=== PATIENT | male | born 2000 | race Caucasian/White ===

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

== ENCOUNTER → 2020-01-03 | Outpatient (CLI) | payer OTHER | LOC: RAD 08:52 | DX: M25.561 Pain in right knee (principal) ==

== ENCOUNTER → 2020-06-24 | Outpatient (CLI) | payer OTHER | LOC: LAB 14:03 | DX: U07.1 COVID-19 (principal) ==